=== PATIENT | male | born 1995 | race African-American/Black ===

== ENCOUNTER 2024-04-28 10:39 | Emergency (ER) | payer OTHER ==
[~2024-04-28] VITALS: Ht 182.9 cm; Wt 95.5 kg
[2024-04-28] MEDS: dexAMETHasone 20MG/5ML VIAL IV ONE (14:05)
[2024-04-28] MEDS ORDERED: ISOVUE-370 76% 100ML VIAL As Ordered ONE (14:15)
[2024-04-28 15:36] VITALS: BP 136/88; TEMP 96.1; O2SAT 98
== END 2024-04-28 15:38 | disposition home or self-care (01) ==
LOC: M ED 10:39
DX: J02.9 Acute pharyngitis, unspecified (principal)
CPT/HCPCS: 70491; 71046; 80047; 87486; 87581; 87633; 87798; 96374; 99283; J1100; Q9967